=== PATIENT | female | born 1995 | race Caucasian/White ===

== ENCOUNTER 2018-11-13 15:42 | Emergency (ER) | payer OTHER ==
[2018-11-13] MEDS ORDERED: OMEP-125 PO (15:56)
[2018-11-13] MEDS ORDERED: NS(*) 0.9% 1000 ML BAG 1,000 ML IV ONE (16:09)
--- NOTE | 2018-11-13 16:12 | ER Report ---
History and Physical Time Seen By MD: 16:12 Hx. of Stated Complaint: patient reports rapid heart rate for the last 4 hours (SAY SORIANO MD) HPI/ROS 23-year-old otherwise healthy female presents to the emergency department with palpitations that have been ongoing for approximately the past 5 hours. The patient states they started while she was relaxing and not exerting herself. She denies chest pain. States that she had shortness of breath initially, but no shortness of breath at this time. She has never had any problems with her thyroid. She denies drugs, increased caffeine use, or over the counter supp lements. She denies being dehydrated recently. She does not have any PE risk factors. Does not smoke. She reports one previous episode of palpitations about a year ago, and the episode was self-limiting. No family history of early cardiac , Brugada, or prolonged QT. Remainder of the 14 system rev: Yes (SAY SORIANO MD) Allergies: Coded Allergies: No Known Drug Allergies (Unverified , 11/13/18) Home Meds Active Scripts Propranolol Hcl (PROPRANOLOL HCL) 40 Mg Tablet, 40 MG PO BID, #60 TAB 0 Refills Prov:ALVAREZ MOREIRA MD 11/13/18 Reported Medications Omeprazole (OMEPRAZOLE) 20 Mg Capsule.dr, 1 CAP PO QDAY, CAP 11/13/18 Reviewed Nurses Notes: Yes Old Medical Records Reviewed: Yes (SAY SORIANO MD) Hx Substance Use Disorder: No (SAY SORIANO MD) Constitutional Vital Sign - Last 24 Hours 11/13/18 11/13/18 11/13/18 11/13/18 15:42 15:50 15:51 15:51 Temp 98.2 Pulse ??? 136 Resp 20 B/P (MAP) 131/103 (112) 135/100 135/100 (112) Pulse Ox 97 O2 Delivery Room Air 11/13/18 11/13/18 11/13/18 11/13/18 16:00 16:12 16:15 16:30 Pulse 138 Resp 23 B/P (MAP) 131/102 (112) 116/103 (107) ???/??? (1665) Pulse Ox 86 11/13/18 11/13/18 11/13/18 11/13/18 16:42 16:49 17:00 17:12 Pulse ? Resp 18 B/P (MAP) 128/93 (105) 127/104 (112) Pulse Ox 89 11/13/18 11/13/18 11/13/18 11/13/18 17:15 17:20 17:30 17:45 Pulse ??? Resp 12 B/P (MAP) 122/90 (101) ???/??? (1665) 130/79 (96) Pulse Ox 91 11/13/18 11/13/18 11/13/18 11/13/18 17:50 18:00 18:23 18:30 Pulse 109 Resp 18 B/P (MAP) 133/85 (101) 117/88 (98) 115/88 (97) Pulse Ox 96 11/13/18 11/13/18 11/13/18 11/13/18 18:50 18:55 19:00 19:25 Pulse 104 104 ??? Resp 16 16 16 B/P (MAP) 110/83 (92) Pulse Ox 93 100 82 11/13/18 11/13/18 11/13/18 11/13/18 19:30 19:40 19:45 20:00 Pulse 96 96 97 Resp 12 21 15 B/P (MAP) 120/90 (100) 117/82 (94) Pulse Ox 95 89 93 O2 Delivery Room Air Room Air 11/13/18 11/13/18 11/13/18 11/13/18 20:05 20:20 20:30 20:35 Pulse 85 ??? 85 Resp 18 12 13 B/P (MAP) 103/66 (78) Pulse Ox 95 87 93 O2 Delivery Room Air Room Air Room Air ([facility],ALVAREZ Abbott MD) Medical Decision Making Data Points Result Diagram: 11/13/18 1606 11/13/18 1606 Laboratory Hematology Test 11/13/18 16:06 11/13/18 16:48 11/13/18 21:01 Red Blood Count 5.00 M/uL (4.17-5.56) Mean Corpuscular Volume 68.4 fL (80.0-96.0) Mean Corpuscular Hemoglobin 21.3 pg (26.0-33.0) Mean Corpuscular Hemoglobin Concent 31.1 g/dL (32.0-36.0) Red Cell Distribution Width 18.8 % (11.5-14.5) Mean Platelet Volume 8.6 fL (7.2-11.1) Neutrophils (%) (Auto) 76.5 % (39.4-72.5) Lymphocytes (%) (Auto) 15.8 % (17.6-49.6) Monocytes (%) (Auto) 6.8 % (4.1-12.4) Eosinophils (%) (Auto) 0.2 % (0.4-6.7) Basophils (%) (Auto) 0.7 % (0.3-1.4) Nucleated RBC Relative Count (auto) 0.0 /100WBC Neutrophils # (Auto) 7.1 K/uL (2.0-7.4) Lymphocytes # (Auto) 1.5 K/uL (1.3-3.6) Monocytes # (Auto) 0.6 K/uL (0.3-1.0) Eosinophils # (Auto) 0.0 K/uL (0.0-0.5) Basophils # (Auto) 0.1 K/uL (0.0-0.1) Nucleated RBC Absolute Count (auto) 0.00 K/uL Peripheral Blood Smear Y/N D-Dimer Quantitative (PE/DVT) 0.29 ug/ml (0-0.50) Sodium Level 142 mmol/L (137-145) Potassium Level 3.5 mmol/L (3.5-5.0) Chloride Level 110 mmol/L (98-107) Carbon Dioxide Level 22 mmol/L (22-31) Blood Urea Nitrogen 16 mg/dl (7-18) Creatinine 0.80 mg/dl (0.52-1.04) Glomerular Filtration Rate Calc > 60.0 Random Glucose 145 mg/dl (75-110) Calcium Level 9.5 mg/dl (8.4-10.2) Total Bilirubin 0.7 mg/dl (0.2-1.3) Aspartate Amino Transf (AST/SGOT) 46 U/L (0-35) Alanine Aminotransferase (ALT/SGPT) 29 U/L (0-56) Alkaline Phosphatase 60 U/L (0-126) Total Protein 8.3 g/dl (6.3-8.2) Albumin 4.6 g/dl (3.5-5.0) Urine Color Straw Urine Clarity Clear Urine pH 7.0 pH (4.8-9.5) Urine Specific [place] 1.013 Urine Protein Negative mg/dL (NEGATIVE) Urine Glucose (UA) Negative mg/dL (NEGATIVE) Urine Ketones Negative mg/dL (NEGATIVE) Urine Blood Negative (NEGATIVE) Urine Nitrite Negative (NEGATIVE) Urine Bilirubin Negative (NEGATIVE) Urine Urobilinogen Negative mg/dL (0.2-1.9) Urine Leukocyte Esterase Negative (NEGATIVE) Urine RBC None /HPF (0-2/HPF) Urine WBC 1 /HPF (0-5/HPF) Urine Squamous Epithelial Cells Many /LPF (</=FEW) Urine Bacteria Negative /HPF (NONE-FEW) Urine Mucus None /HPF (NONE-FEW) Urine HCG, Qualitative Negative (NEGATIVE) Urine Opiates Screen Negative Urine Barbiturates Screen Negative Ur Tricyclic Antidepressants Screen Negative Urine Phencyclidine Screen Negative Urine Amphetamines Screen Negative Urine Benzodiazepines Screen Negative Urine Cocaine Screen Negative Urine Cannabinoids Screen Negative Troponin I 0.074 ng/ml Chemistry Test 11/13/18 16:06 11/13/18 16:48 11/13/18 21:01 White Blood Count 9.3 k/uL (4.5-11.0) Red Blood Count 5.00 M/uL (4.17-5.56) Hemoglobin 10.6 g/dL (12.0-16.0) Hematocrit 34.2 % (34.0-47.0) Mean Corpuscular Volume 68.4 fL (80.0-96.0) Mean Corpuscular Hemoglobin 21.3 pg (26.0-33.0) Mean Corpuscular Hemoglobin Concent 31.1 g/dL (32.0-36.0) Red Cell Distribution Width 18.8 % (11.5-14.5) Platelet Count 371 K/uL (150-450) Mean Platelet Volume 8.6 fL (7.2-11.1) Neutrophils (%) (Auto) 76.5 % (39.4-72.5) Lymphocytes (%) (Auto) 15.8 % (17.6-49.6) Monocytes (%) (Auto) 6.8 % (4.1-12.4) Eosinophils (%) (Auto) 0.2 % (0.4-6.7) Basophils (%) (Auto) 0.7 % (0.3-1.4) Nucleated RBC Relative Count (auto) 0.0 /100WBC Neutrophils # (Auto) 7.1 K/uL (2.0-7.4) Lymphocytes # (Auto) 1.5 K/uL (1.3-3.6) Monocytes # (Auto) 0.6 K/uL (0.3-1.0) Eosinophils # (Auto) 0.0 K/uL (0.0-0.5) Basophils # (Auto) 0.1 K/uL (0.0-0.1) Nucleated RBC Absolute Count (auto) 0.00 K/uL Peripheral Blood Smear Y/N D-Dimer Quantitative (PE/DVT) 0.29 ug/ml (0-0.50) Glomerular Filtration Rate Calc > 60.0 Calcium Level 9.5 mg/dl (8.4-10.2) Total Bilirubin 0.7 mg/dl (0.2-1.3) Aspartate Amino Transf (AST/SGOT) 46 U/L (0-35) Alanine Aminotransferase (ALT/SGPT) 29 U/L (0-56) Alkaline Phosphatase 60 U/L (0-126) Total Protein 8.3 g/dl (6.3-8.2) Albumin 4.6 g/dl (3.5-5.0) Urine Color Straw Urine Clarity Clear Urine pH 7.0 pH (4.8-9.5) Urine Specific [place] 1.013 Urine Protein Negative mg/dL (NEGATIVE) Urine Glucose (UA) Negative mg/dL (NEGATIVE) Urine Ketones Negative mg/dL (NEGATIVE) Urine Blood Negative (NEGATIVE) Urine Nitrite Negative (NEGATIVE) Urine Bilirubin Negative (NEGATIVE) Urine Urobilinogen Negative mg/dL (0.2-1.9) Urine Leukocyte Esterase Negative (NEGATIVE) Urine RBC None /HPF (0-2/HPF) Urine WBC 1 /HPF (0-5/HPF) Urine Squamous Epithelial Cells Many /LPF (</=FEW) Urine Bacteria Negative /HPF (NONE-FEW) Urine Mucus None /HPF (NONE-FEW) Urine HCG, Qualitative Negative (NEGATIVE) Urine Opiates Screen Negative Urine Barbiturates Screen Negative Ur Tricyclic Antidepressants Screen Negative Urine Phencyclidine Screen Negative Urine Amphetamines Screen Negative Urine Benzodiazepines Screen Negative Urine Cocaine Screen Negative Urine Cannabinoids Screen Negative Troponin I 0.074 ng/ml Coagulation Test 11/13/18 16:06 D-Dimer Quantitative (PE/DVT) 0.29 ug/ml Toxicology Test 11/13/18 16:48 Urine Opiates Screen Negative Urine Barbiturates Screen Negative Ur Tricyclic Antidepressants Screen Negative Urine Phencyclidine Screen Negative Urine Amphetamines Screen Negative Urine Benzodiazepines Screen Negative Urine Cocaine Screen Negative Urine Cannabinoids Screen Negative Urinalysis Test 11/13/18 16:48 Urine Color Straw Urine Clarity Clear Urine pH 7.0 pH (4.8-9.5) Urine Specific [place] 1.013 Urine Protein Negative mg/dL (NEGATIVE) Urine Glucose (UA) Negative mg/dL (NEGATIVE) Urine Ketones Negative mg/dL (NEGATIVE) Urine Blood Negative (NEGATIVE) Urine Nitrite Negative (NEGATIVE) Urine Bilirubin Negative (NEGATIVE) Urine Urobilinogen Negative mg/dL (0.2-1.9) Urine Leukocyte Esterase Negative (NEGATIVE) Urine RBC None /HPF (0-2/HPF) Urine WBC 1 /HPF (0-5/HPF) Urine Squamous Epithelial Cells Many /LPF (</=FEW) Urine Bacteria Negative /HPF (NONE-FEW) Urine Mucus None /HPF (NONE-FEW) Urine HCG, Qualitative Negative (NEGATIVE) (LILLIEALVAREZ FUNES MD) EKG/Imaging EKG Interpretation 12 lead EKG: Rhythm: Sinus tachycardia, rate 109 [place]: normal QRS: normal ST segments: normal Imaging CTA CHEST with contrast HISTORY: Tachycardia. Chest pain. ADDITIONAL HISTORY: None. TECHNIQUE: CTA chest with contrast. 3D coronal slab MIPs and 2D reconstructions in the coronal and sagittal planes were also created. One of the following dose optimization techniques was utilized in the performance of this exam: automated exposure control; adjustment of the mA and/or kv according to patient size; or use of iterative reconstruction technique. Specific details can be referenced in the facility's radiology CT exam operational policy. CONTRAST: 75 cc of Isovue-370 COMPARISON: Chest x-ray earlier the same day. FINDINGS: Vessels: No acute filling defect within the pulmonary arteries. Thoracic aorta is normal caliber. Aberrant right subclavian artery coursing posterior to the esophagus. Lower neck: Negative. Heart and pericardium: Negative Mediastinum/hilum/lymph nodes: Negative. Lungs/pleura: Negative. Visualized upper abdomen: Negative. Bones/soft tissues: Negative. Other findings: None significant IMPRESSION: 1. Negative examination for acute pulmonary embolism. 2. No other acute chest process identified. Report Dictated By: Marty Villafana MD at 11/13/2018 5:56 PM (ALVAREZ MOREIRA MD) ED Course/Re-evaluation ED Course I assumed care of this patient at shift change from Dr. Soriano. CTA done and negative, no acute cardiopulmonary processes noted. Repeat Troponin went from 0.020 to 0.066 in two hours. EKG shows continued sinus tachycardia, no other abnormalities noted. Given Propranolol 40mg oral dose. Pulse came down and repeat troponin another 2 hours later was 0.072. She remains symptom free. Will have her follow-up with cardiology. Continue Propranolol 40mg twice a day until then. TSH remains pending and should be run tomorrow. Decision to Disposition Date: Nov 13, 2018 Decision to Disposition Time: 21:45 (ALVAREZ MOREIRA MD) Depart Departure Latest Vital Signs Vital Signs Date Time Temp Pulse Resp B/P (MAP) Pulse Ox O2 Delivery O2 Flow Rate FiO2 11/13/18 20:35 85 13 93 Room Air 11/13/18 20:30 103/66 (78) 11/13/18 15:51 98.2 (ALVAREZ MOREIRA MD) Impression: Primary Impression: Tachycardia Condition: Improved Disposition: HOME OR SELF-CARE New Scripts Propranolol Hcl (PROPRANOLOL HCL) 40 Mg Tablet 40 MG PO BID, #60 TAB 0 Refills Prov: ALVAREZ MOREIRA MD 11/13/18 Patient Instructions: Tachycardia (ED) Additional Instructions: We did not find a cause of your racing heart rate tonight. We recommend follow-up with cardiology for further evaluation, would recommend doing this in the next 1-2 weeks. Return if needed for chest pain, racing heart, shortness of breath or nausea. Take Propranolol 40mg twice a day until you see cardiology. SAY SORIANO MD Nov 13, 2018 16:12 ALVAREZ MOREIRA MD Nov 13, 2018 18:20
--- NOTE | 2018-11-13 16:13 | EKG ---
[place] [facility] [place] NAME: TSERING HAMEED : [id number] MR: [id number] V: [id number] EXAM DATE: ORDERING PHYSICIAN: SAY SORIANO TECHNOLOGIST: Test Reason : PALPITATIONS Blood Pressure : / mmHG Vent. Rate : 134 BPM Atrial Rate : 134 BPM P-R Int : 112 ms QRS Dur : 086 ms QT Int : 314 ms P-R-T Axes : 063 072 -01 degrees QTc Int : [address] and T wave abnormality, consider inferior ischemia Abnormal ECG No previous ECGs available Confirmed by FRANTZ NEVAREZ ([id number]) on 11/14/2018 6:45:02 AM Referred By: Confirmed By:FRANTZ NEVAREZ
[2018-11-13 16:22] LABS: PLATELET COUNT, AUTOMATED 371 K/uL (150-450)
--- NOTE | 2018-11-13 16:42 | RADIOLOGY IMAGING REPORT ---
[place] [facility] [place] Maddy Muhammad : 1995 MR: [id number] V: [id number] EXAM DATE: ORDERING PHYSICIAN: SAY SORIANO TECHNOLOGIST: Location: [facility] [place] Patient: Maddy Muhammad : 1995 Visit/Account:[id number] Date of : 11/13/2018 CHEST PA AND LAT HISTORY: short of breath/palpitations COMPARISON: None FINDINGS: Cardiomediastinal contours: Normal Lungs and pleura: Normal Bones/soft tissues: Normal Other findings: None significant IMPRESSION: 1. Normal chest Report Dictated By: Marty Villafana MD at 11/13/2018 4:38 PM Report E-Signed By: Marty Villafana MD at 11/13/2018 4:38 PM WSN:[id number]
[2018-11-13] MEDS ORDERED: IOPAMIDOL 76% 75 ML INFUS BTL 75 ML ONE (17:25)
[2018-11-13] MEDS ORDERED: NS(*) 0.9% 50 ML BAG 50 ML ONE (17:26)
--- NOTE | 2018-11-13 18:05 | RADIOLOGY IMAGING REPORT ---
FACILITY: [facility] PATIENT NAME: Maddy Muhammad : 1995 MR: [id number] V: [id number] EXAM DATE: ORDERING PHYSICIAN: SAY SORIANO TECHNOLOGIST: Location: [facility] [place] Patient: Maddy Muhammad : 1995 Visit/Account:[id number] Date of : 11/13/2018 CTA CHEST with contrast HISTORY: Tachycardia. Chest pain. ADDITIONAL HISTORY: None. TECHNIQUE: CTA chest with contrast. 3D coronal slab MIPs and 2D reconstructions in the coronal and sagittal planes were also created. One of the following dose optimization techniques was utilized in the performance of this exam: automated exposure control; adjustment of the mA and/or kv according to patient size; or use of iterative reconstruction technique. Specific details can be referenced in [facility]'s radiology CT exam operational policy. CONTRAST: 75 cc of Isovue-370 COMPARISON: Chest x-ray earlier the same day. FINDINGS: Vessels: No acute filling defect within the pulmonary arteries. Thoracic aorta is normal caliber. Ab errant right subclavian artery coursing posterior to the esophagus. Lower neck: Negative. Heart and pericardium: Negative Mediastinum/hilum/lymph nodes: Negative. Lungs/pleura: Negative. Visualized upper abdomen: Negative. Bones/soft tissues: Negative. Other findings: None significant IMPRESSION: 1. Negative examination for acute pulmonary embolism. 2. No other acute chest process identified. Report Dictated By: Marty Villafana MD at 11/13/2018 5:56 PM Report E-Signed By: Marty Villafana MD at 11/13/2018 6:01 PM WSN:[id number]
[2018-11-13] MEDS ORDERED: PROPRANOLOL HCL 20 MG TAB PO ONE ×2 (18:25→21:45)
--- NOTE | 2018-11-13 19:19 | EKG ---
FACILITY: [facility] - [place] PATIENT NAME: TSERING HAMEED : [id number] MR: [id number] V: [id number] EXAM DATE: ORDERING PHYSICIAN: ALVAREZ MOREIRA TECHNOLOGIST: FERNANDO Test Reason : TACHYCARDIA Blood Pressure : / mmHG Vent. Rate : 109 BPM Atrial Rate : 109 BPM P-R Int : 150 ms QRS Dur : 086 ms QT Int : 336 ms P-R-T Axes : 073 075 055 degrees QTc Int : 452 ms Sinus tachycardia Otherwise normal ECG When compared with ECG of 13-NOV-2018 15:55, T wave inversion no longer evident in Inferior leads Confirmed by FRANTZ NEVAREZ ([id number]) on 11/14/2018 6:45:21 AM Referred By: Confirmed By:FRANTZ NEVAREZ
[2018-11-13 20:30] VITALS: BP 103/66
[2018-11-13] MEDS ORDERED: PROP40TA45 PO (21:49)
== END 2018-11-13 22:06 | disposition home or self-care (01) ==
LOC: ER 16:16
DX: R00.0 Tachycardia, unspecified (principal)
CPT/HCPCS: 36415; 71046; 71275; 80305; 81001; 81025; 84443; 84484; 85025; 85379; 93005; 96360; 99284; J7030; J7050; Q9967; 82040; 82247; 82310; 82374; 82435; 82565; 82947; 84075; 84132; 84155; 84295; 84450; 84460; 84520

== ENCOUNTER 2018-12-25 11:21 | Emergency (ER) | payer OTHER ==
[~2018-12-25 11:21] MED LIST: OMEP-125 PO; PROP40TA45 PO
--- NOTE | 2018-12-25 11:36 | ER Report ---
History and Physical Time Seen By MD: 11:36 HPI/ROS CHIEF COMPLAINT: Rapid heart rate HISTORY OF PRESENT ILLNESS: This is a 23-year-old female presents to the emergency room for rapid heart rate. Patient states that about an hour prior to arrival, she was at work loading some freight, bent over lifting up a box and suddenly felt her heart rate increase, decided come in for evaluation. Patient was seen in the emergency department recently for possible SVT. Patient is currently wearing a Holter monitor, she seeing cardiology from [facility]. Patient denies vomiting, slight nausea, no chest pain, mild shortness of breath and lightheadedness otherwise no other complaints. No fevers or chills. No rashes. No headaches. Heart rate 200 bpm on the outside monitor. REVIEW OF SYSTEMS: Constitutional: No fever, no chills. Eyes: No discharge. ENT: No sore throat. Cardiovascular: As above. Respiratory: As above. Gastrointestinal: As above. Genitourinary: No hematuria. Musculoskeletal: No back pain. Skin: No rashes. Neurological: No headache. Allergies: Coded Allergies: No Known Drug Allergies (Unverified , 12/25/18) Home Meds Active Scripts Propranolol Hcl (PROPRANOLOL HCL) 40 Mg Tablet, 40 MG PO BID, #60 TAB 0 Refills Prov:ALVAREZ MOREIRA MD 11/13/18 Reported Medications Omeprazole (OMEPRAZOLE) 20 Mg Capsule., 1 CAP PO QDAY, CAP 11/13/18 Past Medical/Surgical History The patient has a past medical and surgical history of SVT, GERD. Reviewed Nurses Notes: Yes Hx Substance Use Disorder: No Constitutional Vital Sign - Last 24 Hours 12/25/18 12/25/18 12/25/18 12/25/18 11:26 11:30 11:31 11:36 Pulse 210 197 Resp 22 23 B/P (MAP) 130/98 (109) 129/25 (59) 12/25/18 12/25/18 12/25/18 12/25/18 11:41 11:42 11:44 11:45 Temp 97.5 Pulse 181 95 Resp 17 16 B/P (MAP) 125/108 (114) 108/93 (98) 108/93 Pulse Ox 98 100 O2 Delivery Nasal Cannula 12/25/18 12/25/18 12/25/18 12/25/18 11:46 11:51 11:56 12:01 Pulse 97 97 Resp 14 9 14 17 B/P (MAP) 108/93 (98) Pulse Ox 100 99 100 12/25/18 12/25/18 12/25/18 12/25/18 12:06 12:11 12:21 12:26 Pulse 99 100 98 96 Resp 16 13 11 19 Pulse Ox 100 12/25/18 12/25/18 12:30 12:31 Pulse 96 Resp 12 B/P (MAP) 96/68 (77) Pulse Ox 94 Physical Exam General Appearance: The patient is alert, has no immediate need for airway protection and no signs of toxicity. Eyes: Pupils equal and round no pallor or injection. ENT, Mouth: Mucous membranes are moist. Respiratory: There are no retractions, lungs are clear to auscultation. Cardiovascular: Rapid and Regular rate and rhythm, no murmurs, clicks or rubs. Gastrointestinal: Abdomen is soft and non tender, no masses, bowel sounds normal. Neurological: Alert and oriented 4. Moving all cavities. Following all commands. No focal neuro deficits. Skin: Warm and dry, no rashes. Musculoskeletal: Neck is supple non tender. Extremities are nontender, nonswollen and have full range of motion. DIFFERENTIAL DIAGNOSIS: After history and physical exam differential diagnosis was considered for sinus tachycardia, SVT. Medical Decision Making Data Points Result Diagram: 12/25/18 1139 12/25/18 1139 Laboratory Hematology Test 12/25/18 11:39 Red Blood Count 5.29 M/uL (4.17-5.56) Mean Corpuscular Volume 69.3 fL (80.0-96.0) Mean Corpuscular Hemoglobin 20.8 pg (26.0-33.0) Mean Corpuscular Hemoglobin Concent 30.0 g/dL (32.0-36.0) Red Cell Distribution Width 19.5 % (11.5-14.5) Mean Platelet Volume 8.7 fL (7.2-11.1) Neutrophils (%) (Auto) 70.2 % (39.4-72.5) Lymphocytes (%) (Auto) 21.2 % (17.6-49.6) Monocytes (%) (Auto) 7.1 % (4.1-12.4) Eosinophils (%) (Auto) 0.5 % (0.4-6.7) Basophils (%) (Auto) 1.0 % (0.3-1.4) Nucleated RBC Relative Count (auto) 0.0 /100WBC Neutrophils # (Auto) 5.0 K/uL (2.0-7.4) Lymphocytes # (Auto) 1.5 K/uL (1.3-3.6) Monocytes # (Auto) 0.5 K/uL (0.3-1.0) Eosinophils # (Auto) 0.0 K/uL (0.0-0.5) Basophils # (Auto) 0.1 K/uL (0.0-0.1) Nucleated RBC Absolute Count (auto) 0.00 K/uL Sodium Level 139 mmol/L (137-145) Potassium Level 4.1 mmol/L (3.5-5.0) Chloride Level 109 mmol/L (98-107) Carbon Dioxide Level 20 mmol/L (22-31) Blood Urea Nitrogen 14 mg/dl (7-18) Creatinine 0.90 mg/dl (0.52-1.04) Glomerular Filtration Rate Calc > 60.0 Random Glucose 176 mg/dl (75-110) Calcium Level 9.6 mg/dl (8.4-10.2) Magnesium Level 2.1 mg/dl (1.7-2.2) Total Bilirubin 1.3 mg/dl (0.2-1.3) Aspartate Amino Transf (AST/SGOT) 28 U/L (0-35) Alanine Aminotransferase (ALT/SGPT) 23 U/L (0-56) Alkaline Phosphatase 56 U/L (0-126) Total Protein 8.3 g/dl (6.3-8.2) Albumin 5.0 g/dl (3.5-5.0) Chemistry Test 12/25/18 11:39 White Blood Count 7.1 k/uL (4.5-11.0) Red Blood Count 5.29 M/uL (4.17-5.56) Hemoglobin 11.0 g/dL (12.0-16.0) Hematocrit 36.6 % (34.0-47.0) Mean Corpuscular Volume 69.3 fL (80.0-96.0) Mean Corpuscular Hemoglobin 20.8 pg (26.0-33.0) Mean Corpuscular Hemoglobin Concent 30.0 g/dL (32.0-36.0) Red Cell Distribution Width 19.5 % (11.5-14.5) Platelet Count 440 K/uL (150-450) Mean Platelet Volume 8.7 fL (7.2-11.1) Neutrophils (%) (Auto) 70.2 % (39.4-72.5) Lymphocytes (%) (Auto) 21.2 % (17.6-49.6) Monocytes (%) (Auto) 7.1 % (4.1-12.4) Eosinophils (%) (Auto) 0.5 % (0.4-6.7) Basophils (%) (Auto) 1.0 % (0.3-1.4) Nucleated RBC Relative Count (auto) 0.0 /100WBC Neutrophils # (Auto) 5.0 K/uL (2.0-7.4) Lymphocytes # (Auto) 1.5 K/uL (1.3-3.6) Monocytes # (Auto) 0.5 K/uL (0.3-1.0) Eosinophils # (Auto) 0.0 K/uL (0.0-0.5) Basophils # (Auto) 0.1 K/uL (0.0-0.1) Nucleated RBC Absolute Count (auto) 0.00 K/uL Glomerular Filtration Rate Calc > 60.0 Calcium Level 9.6 mg/dl (8.4-10.2) Magnesium Level 2.1 mg/dl (1.7-2.2) Total Bilirubin 1.3 mg/dl (0.2-1.3) Aspartate Amino Transf (AST/SGOT) 28 U/L (0-35) Alanine Aminotransferase (ALT/SGPT) 23 U/L (0-56) Alkaline Phosphatase 56 U/L (0-126) Total Protein 8.3 g/dl (6.3-8.2) Albumin 5.0 g/dl (3.5-5.0) EKG/Imaging EKG Interpretation 12 lead EKG: Time of EKG 132. Rhythm: SVT, rate of 190 bpm. [place]: normal QRS: normal ST segments: No ST depression or elevation identified. 12 lead EKG: Repeat EKG 147. Rhythm: Normal sinus rhythm, ventricular rate 96 bpm. [place]: normal QRS: normal ST segments: No ST depression or elevation identified. Patient converted on her own, no adenosine was administered. ED Course/Re-evaluation Clinical Indication for ER IV: Hydration, IV Access ED Course The patient was admitted to room. A history of physical were obtained. Differen tial diagnoses were considered. An IV was started. A CBC, CMP were obtained.Her CBC showing MCV of 69.3, MCH 20.8, MCHC 30.0, The laboratory studies were essentially unchanged from the previous laboratory studies. A 1 L normal saline bolus was given. when the patient arrived the patient's heart rate was noted to be around 200, in SVT. 6 mg IV adenosine was ready to administer, as we were preparing to administer the medication, the patient did convert from SVT into sinus tachycardia, a repeat EKG was obtained, noting that she was in a sinus rhythm, no other abnormalities identified. The initial EKG showing SVT rate of 190 bpm. Patient is wearing a Holter monitor. As these events have been hap pening at work seemingly under stressful patient is lifting, I did recommend no work for the next week until she follows up with cardiology. I did recommend calling cardiology tomorrow, they can review the rhythm over the phone, make any medication adjustments that they feel may be necessary. She also has an echocardiogram scheduled for Wednesday, she will keep that appointment. Patient is feeling much better, is ready to go home. Patient had no other questions or concerns at this time. Decision to Disposition Date: Dec 25, 2018 Decision to Disposition Time: 13:05 Depart Departure Latest Vital Signs Vital Signs Date Time Temp Pulse Resp B/P (MAP) Pulse Ox O2 Delivery O2 Flow Rate FiO2 12/25/18 12:31 96 12 94 12/25/18 12:30 96/68 (77) 12/25/18 11:45 97.5 Nasal Cannula Impression: Primary Impression: SVT (supraventricular tachycardia) Condition: Improved Disposition: HOME OR SELF-CARE Referrals: CARDIOLOGY Patient Instructions: Supraventricular Tachycardia (ED), Tachycardia (ED) Additional Instructions: Please avoid lifting heavy objects or bearing down hard to have a bowel movement. Continue taking the medications as prescribed. Please contact [facility] tomorrow, let them know you were seen again in the ED, they can evaluate the event monitor and see if they can get you in s ooner for follow up. If you have another event please have someone drive you in or call 911 and have EMS transport you, please do not drive. Drink plenty of water. Get plenty of rest. Keep your appointment Wednesday for your Echo, you can call this week, see if they can get you in sooner. KARIME CRAWFORD [employer] Dec 25, 2018 11:36
[2018-12-25] MEDS ORDERED: ADENOSINE(*)IV SOLN 3MG/ML ONE (11:43)
[2018-12-25] MEDS ORDERED: NS(*) 0.9% 1000 ML BAG 1,000 ML IV ONE (11:50)
[2018-12-25 11:54] LABS: PLATELET COUNT, AUTOMATED 440 K/uL (150-450)
--- NOTE | 2018-12-25 12:05 | EKG ---
FACILITY: [facility] PATIENT NAME: TSERING HAMEED : [id number] MR: [id number] V: [id number] EXAM DATE: ORDERING PHYSICIAN: KARIME CRAWFORD TECHNOLOGIST: DEACON Test Reason : SVT Blood Pressure : / mmHG Vent. Rate : 096 BPM Atrial Rate : 096 BPM P-R Int : 170 ms QRS Dur : 086 ms QT Int : 368 ms P-R-T Axes : 076 079 064 degrees QTc Int : 464 ms Normal sinus rhythm Normal ECG When compared with ECG of 25-DEC-2018 11:32, Vent. rate has decreased BY [address] no longer depressed in Inferior leads ST no longer depressed in Anterior leads T wave inversion no longer evident in Inferior leads Confirmed by VALENCIA SHARMA ([id number]) on 12/25/2018 3:59:27 PM Referred By: FELISHA Confirmed By:VALENCIA SHARMA
--- NOTE | 2018-12-25 12:05 | EKG ---
[place] [facility] [place] NAME: TSERING HAMEED : [id number] MR: [id number] V: [id number] EXAM DATE: ORDERING PHYSICIAN: KARIME CRAWFORD TECHNOLOGIST: DEACON Test Reason : SVT Blood Pressure : / mmHG Vent. Rate : 190 BPM Atrial Rate : 190 BPM P-R Int : 104 ms QRS Dur : 072 ms QT Int : 244 ms P-R-T Axes : 000 075 -24 degrees QTc Int : 433 ms Sinus tachycardia with short GA ST depression, consider subendocardial injury or digitalis effect Abnormal ECG Confirmed by VALENCIA SHARMA ([id number]) on 12/25/2018 3:59:18 PM Referred By: FELISHA Confirmed By:VALENCIA SHARMA
[2018-12-25 12:30] VITALS: BP 96/68
== END 2018-12-25 13:20 | disposition home or self-care (01) ==
LOC: ER 11:26
DX: I47.1 Supraventricular tachycardia (principal)
CPT/HCPCS: 83735; 85025; 93005; 96360; 99283; J7030; 82040; 82247; 82310; 82374; 82435; 82565; 82947; 84075; 84132; 84155; 84295; 84450; 84460; 84520

== ENCOUNTER → 2019-02-22 | Outpatient (REF) | payer OTHER | LOC: ZZSENDIN 15:47 | PROVIDERS: ATTEND Physician Assistant | DX: D50.9 Iron deficiency anemia, unspecified (principal) | CPT/HCPCS: 82728; 85045 ==

== ENCOUNTER 2019-05-18 16:13 | Emergency (ER) | payer OTHER ==
--- NOTE | 2019-05-18 16:24 | ER Report ---
History and Physical Time Seen By MD: 16:19 Hx. of Stated Complaint: i think i have an infection HPI/ROS CHIEF COMPLAINT: Diarrhea HISTORY OF PRESENT ILLNESS: This is a 24-year-old female who presents to the emergency department for diarrhea. Patient states that she had an appendectomy 2 weeks ago, the procedure went well although the patient and her mother at the bedside state that it was nearing rupture at the time of its removal. She's been doing well, however the past 4 days she's had diarrhea and subjectively had fevers at home, today she noted that she had blood in her stool. She's had abdominal pain increasing over the last several days as well. The pain is intermittent. No chest pain or shortness of breath. No nausea or vomiting. No dysuria. REVIEW OF SYSTEMS: Constitutional: As above. Eyes: No discharge. ENT: No sore throat. Cardiovascular: No chest pain, no palpitations. Respiratory: No cough, no shortness of breath. Gastrointestinal: As above. Genitourinary: No hematuria. Musculoskeletal: No back pain. Skin: No rashes. Neurological: No headache. Allergies: Coded Allergies: No Known Drug Allergies (Unverified , 05/18/19) Home Meds Active Scripts Propranolol Hcl (PROPRANOLOL HCL) 40 Mg Tablet, 40 MG PO BID, #60 TAB 0 Refills Prov:ALVAREZ MOREIRA MD 11/13/18 Reported Medications Omeprazole (OMEPRAZOLE) 20 Mg Capsule.dr, 1 CAP PO QDAY, CAP 11/13/18 Past Medical/Surgical History The patient has a past medical and surgical history of SVT, cardiac ablation, appendectomy. Reviewed Nurses Notes: Yes Hx Substance Use Disorder: No Constitutional Vital Sign - Last 24 Hours 05/18/19 05/18/19 05/18/19 05/18/19 16:16 16:20 16:30 16:43 Temp 99.4 Pulse 103 105 Resp 14 B/P (MAP) 134/83 (100) 134/83 127/89 (102) Pulse Ox 97 97 O2 Delivery Room Air 05/18/19 05/18/19 05/18/19 05/18/19 17:00 17:13 17:15 17:30 Pulse 95 B/P (MAP) 117/80 (92) 116/76 (89) 115/80 (92) Pulse Ox 97 05/18/19 05/18/19 05/18/19 05/18/19 17:35 17:45 17:50 18:00 Pulse 85 ??? B/P (MAP) ???/??? (1664) ???/??? (1664) Pulse Ox 100 05/18/19 05/18/19 05/18/19 05/18/19 18:05 18:15 18:20 18:25 Pulse ? B/P (MAP) ???/??? (1664) 126/79 (95) 05/18/19 05/18/19 05/18/19 05/18/19 18:35 18:50 19:05 19:17 Pulse 81 79 78 B/P (MAP) 123/78 (93) Pulse Ox 85 95 96 Physical Exam General Appearance: The patient is alert, has no immediate need for airway protection and no signs of toxicity. Eyes: Pupils equal and round no pallor or injection. ENT, Mouth: Mucous membranes are moist. Respiratory: There are no retractions, lungs are clear to auscultation. Cardiovascular: Regular rate and rhythm. No murmurs, clicks or rubs. Gastrointestinal: Abdomen is soft and non tender, no masses, hypoactive bowel sounds. Small umbilical incision is intact, no erythema or cellulitis. No abdominal bruits. Neurological: Alert and oriented 4. Moving all extremities. Following all commands. No focal neuro deficits. Skin: Warm and dry, no rashes. Musculoskeletal: Neck is supple non tender. Extremities are nontender, nonswollen and have full range of motion. DIFFERENTIAL DIAGNOSIS: After history and physical exam differential diagnosis was considered for abdominal pain in a female including but not limited to ovarian cyst, postsurgical infection, gastroenteritis, pelvic inflammatory disease, ovarian torsion, urinary tract infection, and appendicitis. Medical Decision Making Data Points Result Diagram: 05/18/19 1705 05/18/19 170 Laboratory Hematology Test 05/18/19 17:05 05/18/19 17:44 Red Blood Count 4.57 M/uL (4.17-5.56) Mean Corpuscular Volume 77.5 fL (80.0-96.0) Mean Corpuscular Hemoglobin 25.4 pg (26.0-33.0) Mean Corpuscular Hemoglobin Concent 32.8 g/dL (32.0-36.0) Red Cell Distribution Width 18.3 % (11.5-14.5) Mean Platelet Volume 9.1 fL (7.2-11.1) Neutrophils (%) (Auto) 82.2 % (39.4-72.5) Lymphocytes (%) (Auto) 9.7 % (17.6-49.6) Monocytes (%) (Auto) 7.3 % (4.1-12.4) Eosinophils (%) (Auto) 0.3 % (0.4-6.7) Basophils (%) (Auto) 0.5 % (0.3-1.4) Nucleated RBC Relative Count (auto) 0.0 /100WBC Neutrophils # (Auto) 8.1 K/uL (2.0-7.4) Lymphocytes # (Auto) 1.0 K/uL (1.3-3.6) Monocytes # (Auto) 0.7 K/uL (0.3-1.0) Eosinophils # (Auto) 0.0 K/uL (0.0-0.5) Basophils # (Auto) 0.0 K/uL (0.0-0.1) Nucleated RBC Absolute Count (auto) 0.00 K/uL Peripheral Blood Smear No Y/N Sodium Level 143 mmol/L (137-145) Potassium Level 3.3 mmol/L (3.5-5.0) Chloride Level 108 mmol/L (98-107) Carbon Dioxide Level 19 mmol/L (22-31) Blood Urea Nitrogen 8 mg/dl (7-18) Creatinine 0.70 mg/dl (0.52-1.04) Glomerular Filtration Rate Calc > 60.0 Random Glucose 93 mg/dl (75-110) Lactate 0.8 mmol/L (0.7-2.1) Calcium Level 9.3 mg/dl (8.4-10.2) Total Bilirubin 0.8 mg/dl (0.2-1.3) Aspartate Amino Transf (AST/SGOT) 19 U/L (0-35) Alanine Aminotransferase (ALT/SGPT) 34 U/L (0-56) Alkaline Phosphatase 57 U/L (0-126) Total Protein 7.6 g/dl (6.3-8.2) Albumin 4.3 g/dl (3.5-5.0) Urine Color Yellow Urine Clarity Clear Urine pH 5.0 pH (4.8-9.5) Urine Specific [place] 1.016 Urine Protein Negative mg/dL (NEGATIVE) Urine Glucose (UA) Negative mg/dL (NEGATIVE) Urine Ketones 20 mg/dL (NEGATIVE) Urine Blood Small (NEGATIVE) Urine Nitrite Negative (NEGATIVE) Urine Bilirubin Negative (NEGATIVE) Urine Urobilinogen Negative mg/dL (0.2-1.9) Urine Leukocyte Esterase Negative (NEGATIVE) Urine RBC None /HPF (0-2/HPF) Urine WBC 1 /HPF (0-5/HPF) Urine Squamous Epithelial Cells Many /LPF (</=FEW) Urine Bacteria Negative /HPF (NONE-FEW) Urine Mucus Few /HPF (NONE-FEW) Urine HCG, Qualitative Negative (NEGATIVE) Chemistry Test 05/18/19 17:05 05/18/19 17:44 White Blood Count 9.9 k/uL (4.5-11.0) Red Blood Count 4.57 M/uL (4.17-5.56) Hemoglobin 11.6 g/dL (12.0-16.0) Hematocrit 35.5 % (34.0-47.0) Mean Corpuscular Volume 77.5 fL (80.0-96.0) Mean Corpuscular Hemoglobin 25.4 pg (26.0-33.0) Mean Corpuscular Hemoglobin Concent 32.8 g/dL (32.0-36.0) Red Cell Distribution Width 18.3 % (11.5-14.5) Platelet Count 268 K/uL (150-450) Mean Platelet Volume 9.1 fL (7.2-11.1) Neutrophils (%) (Auto) 82.2 % (39.4-72.5) Lymphocytes (%) (Auto) 9.7 % (17.6-49.6) Monocytes (%) (Auto) 7.3 % (4.1-12.4) Eosinophils (%) (Auto) 0.3 % (0.4-6.7) Basophils (%) (Auto) 0.5 % (0.3-1.4) Nucleated RBC Relative Count (auto) 0.0 /100WBC Neutrophils # (Auto) 8.1 K/uL (2.0-7.4) Lymphocytes # (Auto) 1.0 K/uL (1.3-3.6) Monocytes # (Auto) 0.7 K/uL (0.3-1.0) Eosinophils # (Auto) 0.0 K/uL (0.0-0.5) Basophils # (Auto) 0.0 K/uL (0.0-0.1) Nucleated RBC Absolute Count (auto) 0.00 K/uL Peripheral Blood Smear No Y/N Glomerular Filtration Rate Calc > 60.0 Lactate 0.8 mmol/L (0.7-2.1) Calcium Level 9.3 mg/dl (8.4-10.2) Total Bilirubin 0.8 mg/dl (0.2-1.3) Aspartate Amino Transf (AST/SGOT) 19 U/L (0-35) Alanine Aminotransferase (ALT/SGPT) 34 U/L (0-56) Alkaline Phosphatase 57 U/L (0-126) Total Protein 7.6 g/dl (6.3-8.2) Albumin 4.3 g/dl (3.5-5.0) Urine Color Yellow Urine Clarity Clear Urine pH 5.0 pH (4.8-9.5) Urine Specific [place] 1.016 Urine Protein Negative mg/dL (NEGATIVE) Urine Glucose (UA) Negative mg/dL (NEGATIVE) Urine Ketones 20 mg/dL (NEGATIVE) Urine Blood Small (NEGATIVE) Urine Nitrite Negative (NEGATIVE) Urine Bilirubin Negative (NEGATIVE) Urine Urobilinogen Negative mg/dL (0.2-1.9) Urine Leukocyte Esterase Negative (NEGATIVE) Urine RBC None /HPF (0-2/HPF) Urine WBC 1 /HPF (0-5/HPF) Urine Squamous Epithelial Cells Many /LPF (</=FEW) Urine Bacteria Negative /HPF (NONE-FEW) Urine Mucus Few /HPF (NONE-FEW) Urine HCG, Qualitative Negative (NEGATIVE) Urinalysis Test 05/18/19 17:44 Urine Color Yellow Urine Clarity Clear Urine pH 5.0 pH (4.8-9.5) Urine Specific [place] 1.016 Urine Protein Negative mg/dL (NEGATIVE) Urine Glucose (UA) Negative mg/dL (NEGATIVE) Urine Ketones 20 mg/dL (NEGATIVE) Urine Blood Small (NEGATIVE) Urine Nitrite Negative (NEGATIVE) Urine Bilirubin Negative (NEGATIVE) Urine Urobilinogen Negative mg/dL (0.2-1.9) Urine Leukocyte Esterase Negative (NEGATIVE) Urine RBC None /HPF (0-2/HPF) Urine WBC 1 /HPF (0-5/HPF) Urine Squamous Epithelial Cells Many /LPF (</=FEW) Urine Bacteria Negative /HPF (NONE-FEW) Urine Mucus Few /HPF (NONE-FEW) Urine HCG, Qualitative Negative (NEGATIVE) EKG/Imaging Imaging PATIENT NAME: Maddy Muhammad : 1995 MR: [id number] V: [id number] EXAM DATE: ORDERING PHYSICIAN: KARIME CRAWFORD TECHNOLOGIST: Location: [facility] [place] Patient: Maddy Muhammad : 1995 Visit/Account:[id number] Date of : 05/18/2019 CT ABDOMEN PELVIS W/ CON COMPARISONS: None. ADDITIONAL PERTINENT HISTORY: Recent appendectomy. TECHNIQUE: Multiple axial images were obtained from the lung bases through the lesser trochanters before and after the IV administration of IV contrast. One of the following dose optimization techniques was utilized in the performance of this exam: Automated exposure control; adjustment of the mA and/or kV according to the patient's size; or use of an iterative reconstruction technique. Specific details can be referenced in the facility's radiology CT exam operational policy. CONTRAST: 75 ml of Isovue-370 FINDINGS: Lung bases: Negative. Free air and free fluid: None. Liver: Negative. Spleen: Negative. Kidneys, ureters and urinary bladder: Negative. Adrenal glands: Negative. Pancreas: Negative. Gallbladder: Negative. Bowel and mesentery: Patient status post appendectomy. No focal fluid collection in the right lower quadrant to suggest abscess at this time.. Pelvic contents: Negative Lymph node assessment: Negative. Retroperitoneum: Negative. Abdominal vasculature: Negative. Surrounding soft tissues: Negative. Osseous structures: Negative. IMPRESSION: 1. Patient status post appendectomy. 2. No acute process noted including no evidence of abscess on today's exam. Report Dictated By: Mike Quesada MD at 05/18/2019 6:44 PM Report E-Signed By: Mike Quesada MD at 05/18/2019 6:48 PM WSN:[id number] ED Course/Re-evaluation Clinical Indication for ER IV: Hydration, IV Access ED Course The patient was admitted to room. A history of physical obtained. Differential diagnoses were considered. IV started. A CBC, CMP were obtained. Lactate was collected. A 1 L normal saline bolus was given. CBC unremarkable, chemistry showing potassium 3.3, normal lactate, otherwise unremarkable, negative UA, negative . Patient had a CT of the abdomen pelvis which was negative for any acute intra-abdominal pathology, no abscess. I did review the results with the patient and her mother at the bedside. Patient was relieved. I did tell the patient that this could be secondary to viral gastroenteritis, as we're unable to collect a stool sample in the emergency department I did send the patient home with a collection kit and an order for stool studies. Patient was also instructed to follow-up with her surgeon as scheduled. She will return the stool sample when she flexes sample, if it is infectious, we will treat with antibiotics, patient is agreeable with this plan of care and discharged home. Decision to Disposition Date: May 18, 2019 Decision to Disposition Time: 19:15 Depart Departure Latest Vital Signs Vital Signs Date Time Temp Pulse Resp B/P (MAP) Pulse Ox O2 Delivery O2 Flow Rate FiO2 05/18/19 19:17 123/78 (93) 05/18/19 19:05 78 96 05/18/19 16:20 99.4 14 Room Air Impression: Primary Impression: Diarrhea Condition: Improved Disposition: HOME OR SELF-CARE Patient Instructions: Acute Diarrhea (ED), Clear Liquid Diet (ED), Soft Diet (ED) Additional Instructions: No concerning findings on the laboratory studies ordered the CT scan of her abdomen today. Clear liquid diet for the next 24-48 hours then advance to a soft and bland diet. ER able to collect a stool sample, please bring the stool sample with the order back to the laboratory and we will test the stool, if it is infectious you will be contacted and started on antibiotics. Be sure to drink plenty of water. Get plenty of rest. Follow-up with your surgeon as scheduled. Return to the emergency department for any other concerns or worsening symptoms. Problem Qualifiers Primary Impression: Diarrhea Diarrhea type: unspecified type Qualified Codes: R19.7 - Diarrhea, unspecified KARIME CRAWFORD COP BREAKER-BC May 18, 2019 16:24
[2019-05-18] MEDS ORDERED: NS(*) 0.9% 1000 ML BAG 1,000 ML IV ONE (16:36)
[2019-05-18 17:20] LABS: PLATELET COUNT, AUTOMATED 268 K/uL (150-450)
[2019-05-18] MEDS ORDERED: IOPAMIDOL 76% 100 ML INFUS BTL 100 ML ONE (17:21)
--- NOTE | 2019-05-18 18:54 | RADIOLOGY IMAGING REPORT ---
FACILITY: [facility] PATIENT NAME: Maddy Muhammad : 1995 MR: [id number] V: [id number] EXAM DATE: ORDERING PHYSICIAN: KARIME CRAWFORD TECHNOLOGIST: Location: [facility] Patient: Maddy Muhammad : 1995 Visit/Account:[id number] Date of : 05/18/2019 CT ABDOMEN PELVIS W/ CON COMPARISONS: None. ADDITIONAL PERTINENT HISTORY: Recent appendectomy. TECHNIQUE: Multiple axial images were obtained from the lung bases through the lesser trochanters bef ore and after the IV administration of IV contrast. One of the following dose optimization technique s was utilized in the performance of this exam: Automated exposure control; adjustment of the mA and/ or kV according to the patient's size; or use of an iterative reconstruction technique. Specific de tails can be referenced in the facility's radiology CT exam operational policy. CONTRAST: 75 ml of Isovue-370 FINDINGS: Lung bases: Negative. Free air and free fluid: None. Liver: Negative. Spleen: Negative. Kidneys, ureters and urinary bladder: Negative. Adrenal glands: Negative. Pancreas: Negative. Gallbladder: Negative. Bowel and mesentery: Patient status post appendectomy. No focal fluid collection in the right lower q uadrant to suggest abscess at this time.. Pelvic contents: Negative Lymph node assessment: Negative. Retroperitoneum: Negative. Abdominal vasculature: Negative. Surrounding soft tissues: Negative. Osseous structures: Negative. IMPRESSION: 1. Patient status post appendectomy. 2. No acute process noted including no evidence of abscess on today's exam. Report Dictated By: Mike Quesada MD at 05/18/2019 6:44 PM Report E-Signed By: Mike Quesada MD at 05/18/2019 6:48 PM WSN:[id number]
[2019-05-18 19:17] VITALS: BP 123/78
== END 2019-05-18 19:20 | disposition home or self-care (01) ==
LOC: ER 16:23
DX: R19.7 Diarrhea, unspecified (principal)
CPT/HCPCS: 74177; 81001; 81025; 83605; 85025; 87045; 96360; 99284; J7030; Q9967; 82040; 82247; 82274; 82310; 82374; 82435; 82565; 82947; 83630; 84075; 84132; 84155; 84295; 84450; 84460; 84520; 87177; 87493

== ENCOUNTER → 2019-05-18 | Outpatient (CLI) | payer OTHER ==
[~2019-05-18] MED LIST changes: -OMEP-125 PO; +OMEP-126 PO
== END ==
LOC: LAB 22:40
PROVIDERS: ATTEND Nurse Practitioner Family